=== PATIENT | female | born 1980 | race Two or more races ===

== ENCOUNTER 2018-06-10 11:32 | Emergency (ER) | payer OTHER ==
[2018-06-10 11:44] VITALS: BP 134/96
--- NOTE | 2018-06-10 12:11 | UC ---
Ear Complaint HPI - HPI Summary HPI Summary: pain in left ear for a couple of days-- - History of Current Complaint Chief Complaint: UCEar Stated Complaint: EAR PAIN Time Seen by Provider: 06/10/18 12:03 Hx Obtained From: Patient Hx Last Menstrual Period: 06/02/18 ?: No Onset/Duration: Sudden Onset, Lasting Days - 2, Still Present Pain Intensity: 5 Pain Scale Used: 0-10 Numeric Aggravating Factors: Nothing Alleviating Factors: Nothing - Allergies/Home Medications Allergies/Adverse Reactions: Allergies Allergy/AdvReac Type Severity Reaction Status Date / Time No Known Allergies Allergy Verified 06/10/18 11:44 PMH/Surg Hx/FS Hx/Imm Hx Previously Healthy: No Cardiovascular History: Cardiac Disease, Hypertension - Surgical History Surgical History: None - Family History Known Family History: Positive: None - Social History Occupation: Unemployed Lives: With Family Alcohol Use: None Substance Use Type: None Smoking Status (MU): Never Smoked Tobacco Review of Systems Constitutional: Negative Skin: Negative Eyes: Negative ENT: Ear Ache - left ear pain Respiratory: Negative Cardiovascular: Negative Gastrointestinal: Negative Genitourinary: Negative Motor: Negative Neurovascular: Negative Musculoskeletal: Negative Neurological: Negative Psychological: Negative Is Patient Immunocompromised?: No All Other Systems Reviewed And Are Negative: Yes Physical Exam Triage Information Reviewed: Yes Appearance: Well-Appearing, No Pain Distress, Well-Nourished Vital Signs: Initial Vital Signs Temp 97.0 F 06/10/18 11:37 Pulse 82 06/10/18 11:37 Resp 18 06/10/18 11:37 BP 134/96 06/10/18 11:37 Pulse Ox 100 06/10/18 11:37 Vital Signs Reviewed: Yes Eye Exam: Normal Eyes: Positive: Conjunctiva Clear ENT Exam: Normal ENT: Positive: Normal ENT inspection, Hearing grossly normal, Pharynx normal, TMs normal, Uvula midline, Other - left ear canal swollen and red. Negative: Nasal congestion, Tonsillar swelling, Tonsillar exudate, Trismus, Muffled voice , Hoarse voice, Dental tenderness, Sinus tenderness Dental Exam: Normal Neck exam: Normal Neck: Positive: Supple, Nontender, No Lymphadenopathy Respiratory Exam: Normal Respiratory: Positive: Chest non-tender, No respiratory distress, No accessory muscle use Cardiovascular Exam: Normal Cardiovascular: Positive: RRR, Pulses Normal, Brisk Capillary Refill Musculoskeletal Exam: Normal Musculoskeletal: Positive: Strength Intact, ROM Intact, No Edema Neurological Exam: Normal Neurological: Positive: Alert, Muscle Tone Normal Psychological Exam: Normal Skin Exam: Normal Ear Complaint Course/Dx - Course Course Of Treatment: ciprodex drops, tylenol, warm compress follow with pcp prn - Differential Dx/Diagnosis Provider Diagnoses: left otitis externa Discharge - Sign-Out/Discharge Documenting (check all that apply): Patient Departure All imaging exams completed and their final reports reviewed: No Studies - Discharge Plan Condition: Stable Disposition: HOME Prescriptions: Ciproflox/Dexameth OTIC.SUSP* [Ciprodex OTIC.SUSP*] 5 drop .SEE ORDER BID 7 Days #1 btl Patient Education Materials: Otitis Externa (ED), How to Use Ear Drops (ED) Referrals: Fede Garcia MD [Primary Care Provider] - If Needed - Billing Disposition and Condition Condition: STABLE Disposition: Home
== END 2018-06-10 12:20 | disposition home or self-care (01) ==
LOC: UCEAST 11:32
DX: H60.92 Unspecified otitis externa, left ear (principal); I10 Essential (primary) hypertension
CPT/HCPCS: 99212; G0463

== ENCOUNTER 2018-09-18 16:42 | Emergency (ER) | payer OTHER ==
--- NOTE | 2018-09-18 16:50 | UC ---
Ear Complaint HPI - HPI Summary HPI Summary: 38 y/o female presents to the urgent care c/o left ear pain, swollen w/ decrease hearing since last night. Her applied some OTC drops on his left ear and pain increase and swelling. Pain now is 9/10 and sharp, but denies any drainage. Pt has not taking anything for pain today. Her Rt ear is clogged w / decrease hearing too. Pt denies fever, URI, cough, CARDENAS, dizziness, tinnitus, SOB, chest pain, abdominal pain, N/V/D. - History of Current Complaint Stated Complaint: EAR ACHE Time Seen by Provider: 09/18/18 16:48 Hx Obtained From: Patient Hx Last Menstrual Period: 06/02/18 ?: No Onset/Duration: Gradual Onset, Lasting Days - 1 day, Still Present, Worse Since - today Severity Initially: Moderate Severity Currently: Severe Pain Intensity: 9 Pain Scale Used: 0-10 Numeric Aggravating Factors: Other - touch ear Alleviating Factors: Nothing Associated Signs/Symptoms: Positive: Hearing Loss - left ear, Swelling @ - left ear - Allergies/Home Medications Allergies/Adverse Reactions: Allergies Allergy/AdvReac Type Severity Reaction Status Date / Time No Known Allergies Allergy Verified 06/10/18 11:44 Home Medications: Home Medications Ferrous Sulfate [Feosol] 325 mg PO 09/18/18 [History] Furosemide [Lasix] 10 09/18/18 [History] PMH/Surg Hx/FS Hx/Imm Hx Previously Healthy: Yes Other Endocrine History: Anemia Cardiovascular History: Hypertension - Surgical History Surgical History: None - Family History Known Family History: Positive: Hypertension - Social History Occupation: Employed Full-time Lives: With Family Alcohol Use: None Substance Use Type: None Smoking Status (MU): Never Smoked Tobacco Review of Systems All Other Systems Reviewed And Are Negative: Yes Constitutional: Positive: Negative Skin: Positive: Negative Eyes: Positive: Negative ENT: Positive: Ear Ache - left ear pain and swelling, RT ear clogged, Other - decrease hearing Respiratory: Positive: Negative Cardiovascular: Positive: Negative Gastrointestinal: Positive: Negative Genitourinary: Positive: Negative Motor: Positive: Negative Neurovascular: Positive: Negative Musculoskeletal: Positive: Negative Neurological: Positive: Negative Psychological: Positive: Negative Is Patient Immunocompromised?: No Physical Exam - Summary Physical Exam Summary: Vital signs: reviewed General: well developed, well nourished obese female sitting in the examining table w/o any apparent distress Skin: [place], warm and dry, no evidence of atopic dermatitis, psoriasis, seborrhea. HEENT: -Head: atraumatic, non tender; no scalp dermatitis. -Eyes: sclera and conjunctiva clear, PERRLA, EOMI -Ears: no pre- or postauricular lymphadenopathy or erythema; RT external ear canal impacted w/ cerumen unable to visualize RT TM. Rt TM WNL, LF external ear canal w/ yellowish drainage and LF TM injected w/ erythema and purulent discharge. No perforation. -Nose/Face: erythematous and edematous nasal mucosa with clear rhinorrhea, no frontal or maxillary sinus tender to palpation. -Mouth/Throat: Mucous membrane moist, posterior pharynx clear, no erythema or exudates. Neck: supple, FROM, nontender, no lymphadenopathy, no meningismus. Chest: Clear to auscultation, normal breath sounds Abd: soft, Bowel sounds active, Nontender. Back: no spinal or CVAT Neuro: A&O x4, GCS 15, no focal neuro deficits, normal behavior for age. Triage Information Reviewed: Yes Ear Complaint Course/Dx - Course Course Of Treatment: 38 y/o female presents to the urgent care c/o left ear pain , swollen w/ decrease hearing since last night. Her applied some OTC drops on his left ear and pain increase and swelling. Pain now is 9/10 and sharp , but denies any drainage. Pt has not taking anything for pain today. Her Rt ear is clogged w/ decrease hearing too. Pt denies fever, URI, cough, CARDENAS, dizziness, tinnitus, SOB, chest pain, abdominal pain, N/V/D.Hx obtained. Pt w/ RT external ear canal impacted w/ cerumen and left otitis Media w/ TM perforation and otalgia on examination. Pt is hemodynamically stable. Her HR is elevated probably due to pain. Pt given Toradol IM inj for pain, After 30 min observation pain decrease and she felt better. Rt ear irrigation ordered. Left ear irrigation ordered. Irrigation performed by Nurse. Pt tolerated well procedure w/o any adverse effect. RT external w/ erythema and yellowish purulent discharge, RT TM WNL. Pt will be Tx for Otitis externa and Media. Pt Rx Amoxicillin PO and Cortisporin otic drops. first dose given at the clinic today. Pt Advised to take tylenol in the following 24hrs since she was given Toradol IM inj and increase fluid intake. then she can take Ibuprofen PO as directed below. Pt advised if not improvement of symptoms in 2-3 days to f/u w/ ENT DR Soni for further management in her recurrent ear infections. D/c instructions explained. Pt understood and agreed w/ plan of care. - Differential Dx/Diagnosis Differential Diagnosis/HQI/PQRI: Cerumen Impaction, Otitis Externa, Otitis Media , Perforated TM, URI Provider Diagnosis: Impacted cerumen, right ear, Otitis externa of right ear, Otitis media of left ear, Otalgia Discharge - Sign-Out/Discharge Documenting (check all that apply): Patient Departure - D/c home All imaging exams completed and their final reports reviewed: No Studies - Discharge Plan Condition: Stable Disposition: HOME Prescriptions: Amoxicillin PO (*) [Amoxicillin 875 MG (*)] 875 mg PO BID #19 tab Ibuprofen TAB* [Motrin TAB* 800 MG] 800 mg PO Q6H PRN #30 tab PRN Reason: otalgia Neomyc/Polym/HC 1% OTIC SUSP* [Cortisporin Otic Susp 1%*] 4 drop RIGHT EAR TID # 1 btl Patient Education Materials: Cerumen Impaction (ED), Ear Infection (ED) Referrals: Fede Garcia MD [Primary Care Provider] - 2 Days Percy Soni MD [Medical Doctor] - 2 Days Additional Instructions: 1-Please apply otic antibiotic on your Rt ear as directed. 2- Take Amoxicillin PO for your left ear otitis Media. First dose given tonight. 3-Take ibuprofen PO q6-8hrs after meals for pain. If you continue w/ ear pain for the next 24 hrs, take only Tylenol PO, since you were given a Toradol IM inj today. Increase fluid intake and rest. 4-If symptoms do not improve or worsen after 48 hrs of taken antibiotic please f/u with ENT DR Soni for further evaluation and treatment. - Billing Disposition and Condition Condition: STABLE Disposition: Home
[2018-09-18 16:58] VITALS: BP 118/88
[2018-09-18] MEDS ORDERED: Ketorolac INJ* 30 MG/ML 1 ML VIAL IM ONE (17:12)
[2018-09-18] MEDS ORDERED: Amoxicillin PO (*) 500 MG CAP PO ONE ×2 (17:12→17:13)
[2018-09-18] MEDS ORDERED: Neomyc/Polym/HC 1% OTIC SUSP* **OTIC RIGHT EAR ONE (17:36)
== END 2018-09-18 18:31 | disposition home or self-care (01) ==
LOC: UCEAST 16:42
DX: H61.21 Impacted cerumen, right ear (principal); H60.91 Unspecified otitis externa, right ear; H66.92 Otitis media, unspecified, left ear
CPT/HCPCS: 96372; 99213; A9270-GY; G0463; J1885